=== PATIENT | male | born 1955 | race Caucasian/White ===

== ENCOUNTER 2020-11-21 18:07 | Emergency (ER) | payer OTHER ==
[~2020-11-21] VITALS: Ht 177.8 cm; Wt 86.2 kg
[2020-11-21] MEDS ORDERED: METF500C PO (20:08)
[2020-11-21] MEDS ORDERED: ATOR80 PO (20:08)
[2020-11-21] MEDS ORDERED: LOSA50 PO (20:09)
[2020-11-21] MEDS ORDERED: Prozac20 MG PO ×2 (20:09→20:11)
[2020-11-21] MEDS ORDERED: ASPI325 PO (20:09)
[2020-11-21] MEDS ORDERED: POTCHL20ER PO (20:10)
[2020-11-21] MEDS ORDERED: Oretic 25 mg Ta25 MG PO (20:11)
[2020-11-21] MEDS ORDERED: VIT B 12 (20:12)
== END 2020-11-21 22:00 | disposition home or self-care (01) ==
LOC: ER 18:07
DX: S01.01XA Laceration without foreign body of scalp, initial encounter (principal); I10 Essential (primary) hypertension; Z95.0 Presence of cardiac pacemaker; Z79.84 Long term (current) use of oral hypoglycemic drugs; Z79.82 Long term (current) use of aspirin; Z79.899 Other long term (current) drug therapy; Z87.891 Personal history of nicotine dependence; W22.03XA Walked into furniture, initial encounter; Y92.000 Kitchen of unspecified non-institutional (private) residence as the place of occurrence of the external cause; Y93.G3 Activity, cooking and baking
CPT/HCPCS: 12002; 70450; 99283-25

== ENCOUNTER 2025-08-18 08:20 | Day surgery (SDC) | payer OTHER ==
[~2025-08-18] VITALS: Ht 175.3 cm; Wt 84.0 kg
[~2025-08-18 08:20] MED LIST: ALPR1 PO; ASPI325 PO; ATOR80 PO; ELIQUIS5 M2 PO; LOSA50 PO; METF500C PO; OMEP20ER PO; Oretic 25 mg Ta25 MG PO; POTCHL20ER PO; Prozac20 MG PO; VIT B 12
[2025-08-18] MEDS ORDERED: AMLO5 PO (08:48)
[2025-08-18] MEDS ORDERED: TRAZ50 PO (08:50)
[2025-08-18] MEDS ORDERED: DONE5 PO (08:51)
[2025-08-18 08:53] VITALS: BP 120/84; BP 128/84
[2025-08-18 09:00] VITALS: BP 136/81
[2025-08-18] MEDS ORDERED: NS 1,000 ML IV ONE ×2 (09:20→09:23)
[2025-08-18] MEDS ORDERED: Heparin Sodium 1000 Units/ML 10ML MDV ONE (09:20)
[2025-08-18] MEDS ORDERED: CeFAZolin Sodium 1000 mg Vial ONE (09:22)
[2025-08-18] MEDS ORDERED: NS 50 ML IV ONE (09:22)
[2025-08-18] MEDS ORDERED: CeFAZolin Sodium 2,000 MG VIAL ONE (09:22)
[2025-08-18] MEDS ORDERED: FentaNYL Citrate 50 MCG/ML 2 ML Injection ONE (10:06)
[2025-08-18] MEDS ORDERED: Midazolam HCl 1MG / ML 2ML Vial ONE (10:06)
[2025-08-18 13:08] VITALS: BP 154/86
[2025-08-18 13:15] VITALS: BP 165/88
--- NOTE | 2025-08-18 13:58 | NUR ---
ICEPACK PLACED ON UPPER LEFT CHEST INCISION.
--- NOTE | 2025-08-18 13:59 | NUR ---
PT AND VERBALIZED UNDERSTANDING OF WRITTEN AND VERBAL D/C INST. IV REMOVED.
== END 2025-08-18 14:20 | disposition home or self-care (01) ==
LOC: MHTC 08:20
DX: Z45.010 Encounter for checking and testing of cardiac pacemaker pulse generator [battery] (principal); T82.110A Breakdown (mechanical) of cardiac electrode, initial encounter; I48.11 Longstanding persistent atrial fibrillation; I11.0 Hypertensive heart disease with heart failure; I50.32 Chronic diastolic (congestive) heart failure; I25.10 Atherosclerotic heart disease of native coronary artery without angina pectoris; I44.2 Atrioventricular block, complete; Z86.73 Personal history of transient ischemic attack (TIA), and cerebral infarction without residual deficits; Z79.01 Long term (current) use of anticoagulants; Z79.84 Long term (current) use of oral hypoglycemic drugs; Z79.899 Other long term (current) drug therapy; Z88.8 Allergy status to other drugs, medicaments and biological substances; Y71.1 Therapeutic (nonsurgical) and rehabilitative cardiovascular devices associated with adverse incidents
CPT/HCPCS: 33207; 33228; 71046; 99152; 99153; C1785; C1894; C1898; J0690; J1644; J2250; J3010; J7030; J7040; Q9967